=== PATIENT | female | born 1955 | race Caucasian/White ===

== ENCOUNTER 2021-10-11 15:26 | Inpatient (IN) | payer OTHER, MEDICARE ==
[~2021-10-11] VITALS: Ht 162.6 cm; Wt 78.9 kg
[2021-10-11] MEDS ORDERED: IV NS 0.9% 1,000 ML BAG IV ONE (16:00)
[2021-10-11 16:02] LABS: BASOPHILS % (AUTO) 0.3 % (0.0-2.0); EOSINOPHILS % (AUTO) 1.3 % (0.0-6.0); HEMATOCRIT 38 % (33-45); LYMPHOCYTES # (AUTO) 1.6 K/uL (0.8-4.8); LYMPHOCYTES % (AUTO) 21.1 % (20.0-44.0); MEAN CORPUSCULAR HGB CONC 34 g/dl (31.0-36.0); MEAN CORPUSCULAR VOLUME 81 fL (82-100); MONOCYTES # (AUTO) 0.3 K/uL (0.1-1.30); MONOCYTES % (AUTO) 4.2 % (2.0-12.0); NEUTROPHILS # (AUTO) 5.4 K/uL (1.8-8.9); NEUTROPHILS % (AUTO) 73.1 % (43.0-81.0); PLATELET COUNT (AUTO) 241 K/uL (150-450); RED BLOOD CELL COUNT(AUTO) 4.71 MIL/uL (4.0-5.2); WHITE BLOOD COUNT (AUTO) 7.4 K/uL (4.3-11.0)
[2021-10-11 16:13] LABS: ALANINE AMINOTRANSFERASE 24 U/L (12-78); ALBUMIN 3.7 g/dL (3.4-5.0); ALKALINE PHOSPHATASE 81 U/L (46-116); ASPARTATE AMINOTRANSFERASE 16 U/L (15-37); BILIRUBIN,DIRECT 0.1 mg/dL (0.0-0.2); BILIRUBIN,TOTAL 0.4 mg/dL (0.2-1.0); CALCIUM, SERUM 9.9 mg/dL (8.5-10.1); CARBON DIOXIDE 25 mmol/L (21-32); CHLORIDE 96 mmol/L (98-107); CREATININE 0.9 mg/dL (0.6-1.3); POTASSIUM 4.1 mmol/L (3.5-5.1); SODIUM SERUM 130 mmol/L (136-145); TOTAL PROTEIN, SERUM 8.2 g/dL (6.4-8.2); UREA NITROGEN, BLOOD 19 mg/dL (7-18)
[2021-10-11 16:23] LABS: GLUCOSE 478 mg/dL (74-106)
--- NOTE | 2021-10-11 16:24 | NUR ---
RECEIVED A CRITICAL RESULT FROM LAB ([facility]) PT'S GLUCOSE 478mg/dl, TROP of 92. DR HARRIS MADE AWARE
[2021-10-11] MEDS ORDERED: INSULIN REGULAR, HUMAN 100 UNIT/ML 10 ML VIAL SQ ONE (16:30)
[2021-10-11] MEDS ORDERED: INSU100V7 SQ (16:40)
[2021-10-11] MEDS ORDERED: ASPI-1420 PO (16:40)
[2021-10-11] MEDS ORDERED: MELA5TAB21 PO (16:40)
[2021-10-11] MEDS ORDERED: METF-881 PO (16:40)
[2021-10-11] MEDS ORDERED: LOSA25TA27 PO (16:40)
[2021-10-11] MEDS ORDERED: INSU100V11 SQ (16:40)
[2021-10-11] MEDS ORDERED: LEVO50TA8 PO (16:40)
[2021-10-11] MEDS ORDERED: ACET1TAB23 PO (16:40)
[2021-10-11] MEDS ORDERED: LANS30CA56 PO (16:40)
--- NOTE | 2021-10-11 17:00 | NUR ---
URINE COLLECTED AND SENT TO THE LAB
--- NOTE | 2021-10-11 17:00 | NUR ---
COVID ANTIGEN SWAB DONE AND SENT TO THE LAB
--- NOTE | 2021-10-11 17:24 | NUR ---
CALLED VALENTIN JAIMESP AND OPENED UP A CASE FOR THE PT AWAITING CALL BACK FOR VALNETIN PRESLEY
[2021-10-11] MEDS ORDERED: ONDANSETRON HCL/PF 4 MG/2 ML VIAL ONE (19:37)
--- NOTE | 2021-10-11 19:45 | NUR ---
FABIENNE FABRIC PATTERN GRADER AT PT'S BEDSIDE
[2021-10-11] MEDS ORDERED: Z GUARD REMEDY 4 OZ OINT TP PRN (20:30)
[2021-10-11] MEDS ORDERED: MAG HYDROX/AL HYDROX/SIMETH 30 ML UDC PO PRN (20:30)
[2021-10-11] MEDS ORDERED: DEXTROSE 50%-WATER 50 ML DISP.SYRIN IV PRN (20:30)
[2021-10-11] MEDS ORDERED: ACETAMINOPHEN 325 MG TABLET PO PRN (20:30)
[2021-10-11] MEDS ORDERED: MORPHINE SULFATE INJ 2 MG/ML DISP.SYRIN IV PRN (20:30)
[2021-10-11] MEDS ORDERED: IV NS 0.9% 1,000 ML IV PRN (20:30)
--- NOTE | 2021-10-11 20:31 | NUR ---
REPORT GIVEN TO SELMA SILVA
--- NOTE | 2021-10-11 21:12 | NUR ---
PT TRANSFERRED TO [facility] VIA ACLS PROTOCOL . ALL BELONGINGS WITH PT. VSS
--- NOTE | 2021-10-11 21:30 | NUR ---
RN OPENING NOTE PT RECEIVED FROM ER, ADMITTED TO TELE AT 2109. ADMITTED FROM HOME WITH DIAGNOSIS OF NSTEMI AND SYNCOPE. PT IS A/O X 4. ABLE TO MAKE NEEDS KNOWN. ON RA TOLERATING WELL. NO S/SX OF ACUTE DISTRESS NOTED AT THIS TIME. NO SOB. PT SAID HER ANKLES HURT FROM HER FALL WHEN SHE HAD SYNCOPAL EPISODE PRIOR TO ADMISSION. PT HAS SOME HEALED ABRASIONS ON HER BACK AND ARMS. SHE REFUSED TO HAVE THE PHOTOS TAKEN. HAS BRUISING ON HER FOREHEAD FROM THE FALL. RIGHT BIG TOE IS MISSING AND DOES NOT WANT TO SHOW IT. VVS WNL UPON ASSESSMENT. ALL SAFETY MEASURES IN PLACE. BED LOCKED IN LOWEST POSITION. BED ALARM ON. CALL LIGHT WITHIN REACH. WILL CONTINUE TO MONITOR.
[2021-10-11] MEDS: ENOXAPARIN SODIUM 40 MG/0.4 ML DISP.SYRIN SQ SCH (21:51)
[2021-10-11] MEDS: BLOOD SUGAR DIAGNOSTIC 1 EACH STRIP VI SCH (21:59)
[2021-10-11] MEDS ORDERED: TEMAZEPAM 15 MG CAPSULE PO PRN (22:00)
[2021-10-11] MEDS ORDERED: MAGNESIUM HYDROXIDE 30 ML UDC PO PRN (22:00)
[2021-10-11] MEDS: ONDANSETRON HCL/PF 4 MG/2 ML VIAL IVP PRN (22:08)
[2021-10-11] MEDS: *INSULIN REGULAR(HUMULIN R)HUM 100 UNIT/ML VIAL SQ PRN (22:22)
[2021-10-11] MEDS: HYDROCODONE/APAP 5/325MG TABLET PO PRN (23:41)
[2021-10-11] MEDS: LORAZEPAM 0.5 MG TABLET PO PRN (23:50)
[2021-10-12] VITALS: BP 126/69
[2021-10-12 04:00] VITALS: BP 146/68
--- NOTE | 2021-10-12 07:12 | NUR ---
RN CLOSING NOTE PT REMAINED STABLE THROUGHOUT THE NIGHT. PT IS A/O X 4. ABLE TO MAKE NEEDS KNOWN. ON RA TOLERATING WELL. NO S/SX OF ACUTE DISTRESS SATING AT 97%. NO SOB. PT SAID HER ANKLES HURT FROM HER FALL WHEN SHE HAD SYNCOPAL EPISODE PRIOR TO ADMISSION. GAVE NORCO AND ATIVAN REQUESTED BY PT. ALL DUE MEDS GIVEN. ALL NEEDS ATTENDED TO. ALL SAFETY MEASURES IMPLEMENTED. BED LOCKED IN LOWEST POSITION. BED ALARM ON. CALL LIGHT WITHIN REACH. WILL ENDORSE TO AM SHIFT NURSE FOR MARIE.
[2021-10-12 07:18] LABS: BASOPHILS % (AUTO) 0.6 % (0.0-2.0); EOSINOPHILS % (AUTO) 2.4 % (0.0-6.0); HEMATOCRIT 35 % (33-45); HEMOGLOBIN 11.9 g/dL (11.5-14.8); LYMPHOCYTES % (AUTO) 30.2 % (20.0-44.0); MEAN CORPUSCULAR HGB CONC 34 g/dl (31.0-36.0); MEAN CORPUSCULAR VOLUME 80 fL (82-100); MONOCYTES # (AUTO) 0.4 K/uL (0.1-1.30); MONOCYTES % (AUTO) 6.8 % (2.0-12.0); NEUTROPHILS # (AUTO) 3.9 K/uL (1.8-8.9); PLATELET COUNT (AUTO) 231 K/uL (150-450); RED BLOOD CELL COUNT(AUTO) 4.35 MIL/uL (4.0-5.2); WHITE BLOOD COUNT (AUTO) 6.5 K/uL (4.3-11.0)
[2021-10-12 07:19] LABS: MAGNESIUM 1.8 mg/dL (1.8-2.4); PHOSPHORUS 3.9 mg/dL (2.5-4.9); POTASSIUM 3.9 mmol/L (3.5-5.1)
[2021-10-12] MEDS ORDERED: ROSU20TA32 PO (07:26)
[2021-10-12] MEDS: BLOOD SUGAR DIAGNOSTIC 1 EACH STRIP VI SCH ×4 (07:51→21:52)
[2021-10-12] MEDS: INSULIN REGULAR, HUMAN 100 UNIT/ML 3 ML VIAL SQ PRN ×3 (07:56→16:46)
[2021-10-12 08:00] VITALS: BP 141/76
[2021-10-12] MEDS: INSULIN GLARGINE, 100 UNIT/ML CARTRIDGE SQ SCH ×2 (08:11→16:47)
[2021-10-12] MEDS: ASPIRIN EC 81 MG TABLET.DR PO SCH (08:13)
[2021-10-12] MEDS: LEVOTHYROXINE SODIUM 50 MCG TABLET PO SCH (08:13)
[2021-10-12] MEDS: LOSARTAN POTASSIUM 50 MG TABLET PO SCH (08:13)
[2021-10-12] MEDS: METFORMIN XR 500 MG TAB.SR.24H PO SCH (08:13)
[2021-10-12] MEDS: PANTOPRAZOLE 40 MG VIAL IV SCH (08:14)
[2021-10-12] MEDS: HYDROCODONE/APAP 5/325MG TABLET PO PRN ×2 (09:57→21:06)
--- NOTE | 2021-10-12 11:55 | NUR ---
RN NOTES PATIENT SEEN BY PT AT BEDSIDE FOR EVAL/TX; MADE AWARE THAT PATIENT IS UNABLE TO STAND ON RLE. NWB FOR NOW AND WILL MAKE HOSPITALIST BE AWARE.
[2021-10-12 12:00] VITALS: BP 120/72
--- NOTE | 2021-10-12 12:38 | NUR ---
RN NOTES PATIENT SEEN BY DR. WRIGHT W/ ORDERS NOTED.
[2021-10-12] MEDS: PREGABALIN 25 MG CAPSULE PO SCH ×2 (12:54→16:43)
[2021-10-12 16:00] VITALS: BP 151/71
--- NOTE | 2021-10-12 16:14 | NUR ---
RN NOTES PATIENT SEEN BY DR. JULES FOR NEURO CONSULT AT BEDSIDE. BP TAKEN WHEN PATIENT IS STANDING. ASSISTED PATIENT TO BSC.
--- NOTE | 2021-10-12 18:25 | NUR ---
RN NOTES DR. WRIGHT MADE AWARE OF XRAY RESULT AND NEURO CONSULT.
--- NOTE | 2021-10-12 19:29 | NUR ---
RN NOTES PATIENT W/ STANDING ORDER FOR CT ANG[facility] HEART W/ 3D IMAGE. SPOKE W/ PATIENT AND INFORMED ABOUT RECOMMENDED PROCEDURE BY DR. ARIZA. PER PATIENT, SHE IS NOT SURE ABOUT PROCEDURE YET AND WILL HAVE TO ASK DAUGHTER FOR ADVICE. ENDORSED TO PROTECTION ENGINEER RN; FORM PLACED IN THE CHART FOR NOW.
--- NOTE | 2021-10-12 19:30 | NUR ---
RN OPENING NOTE RECEIVED PT IN BED, A/O X 4, ABLE TO MAKE NEEDS KNOWN. VERBALLY RESPONSIVE IN DANISH. ON ROOM AIR SATING AT 98%. RESPIRATORY EVEN AND UNLABORED, NO SOB NOTED AT THIS TIME. REMAINS AFEBRILE. NOTED WITH IV ACCESS AT LAC, #18g. NO INFILTRATION NOTED AT SITE. [facility] ALL SAFETY MEASURES IN PLACE. BED IN LOWEST POSITION, LOCKED. BED ALARM ON. CALL LIGHT WITHIN REACH. WILL CONTINUE TO MONITOR.
[2021-10-12 20:00] VITALS: BP 130/61
[2021-10-12] MEDS: LORAZEPAM 0.5 MG TABLET PO PRN (21:06)
[2021-10-12] MEDS: ENOXAPARIN SODIUM 40 MG/0.4 ML DISP.SYRIN SQ SCH (21:08)
[2021-10-12] MEDS: *INSULIN REGULAR(HUMULIN R)HUM 100 UNIT/ML VIAL SQ PRN (21:55)
[2021-10-13] VITALS (8 sets, daily range): BP systolic 111–198; BP diastolic 59–86
--- NOTE | 2021-10-13 06:55 | NUR ---
RN CLOSING NOTE PT REMAINED STABLE THROUGHOUT THE NIGHT. PT IS A/O X 4. ABLE TO MAKE NEEDS KNOWN. ON RA TOLERATING WELL. NO S/SX OF ACUTE DISTRESS AND SATING AT 97%. NO SOB. ON TELE MONITOR SHOWING SR WITH HR IN THE 90s. LAC NOTED WITH #18g. PATENT AND INTACT. FLUSHES WELL. PT COMPLAINS OF PAIN ON HER ANKLES AND REQUESTED FOR NORCO AND ATIVAN FOR A SOUND SLEEP BEFORE BEDTIME. PT CALMED DOWN AND RELAXED. ALL DUE MEDS GIVEN. ALL NEEDS ATTENDED TO. KEPT PT CLEAN AND COMFORTABLE. KEPT HOB ELEVATED. SAFETY MEASURES IMPLEMENTED. BED LOCKED IN LOWEST POSITION. BED ALARM ON. CALL LIGHT WITHIN REACH. WILL ENDORSE TO AM SHIFT NURSE FOR MARIE.
[2021-10-13 06:57] LABS: BASOPHILS % (AUTO) 0.5 % (0.0-2.0); EOSINOPHILS % (AUTO) 3.7 % (0.0-6.0); HEMATOCRIT 35 % (33-45); LYMPHOCYTES # (AUTO) 2.1 K/uL (0.8-4.8); LYMPHOCYTES % (AUTO) 36.6 % (20.0-44.0); MEAN CORPUSCULAR HGB CONC 34 g/dl (31.0-36.0); MEAN CORPUSCULAR VOLUME 81 fL (82-100); MONOCYTES # (AUTO) 0.3 K/uL (0.1-1.30); MONOCYTES % (AUTO) 5.9 % (2.0-12.0); NEUTROPHILS % (AUTO) 53.3 % (43.0-81.0); PLATELET COUNT (AUTO) 208 K/uL (150-450); WHITE BLOOD COUNT (AUTO) 5.7 K/uL (4.3-11.0)
[2021-10-13 07:07] LABS: CALCIUM, SERUM 9.5 mg/dL (8.5-10.1); MAGNESIUM 1.7 mg/dL (1.8-2.4); PHOSPHORUS 4.7 mg/dL (2.5-4.9)
[2021-10-13] MEDS: BLOOD SUGAR DIAGNOSTIC 1 EACH STRIP VI SCH (08:23)
--- NOTE | 2021-10-13 08:30 | NUR ---
FARM AGENT NOTE PATIENT WALKED TO THE BATHROOM AND JUST SAT DOWN AND 1 MINUTE AFTER SHE CALLED MY ATTENTION AND SAID SHE IS DIZZY. I APPROACHED HER AND SHE SUDDENLY CLOSED HER EYES AND LOSS CONSCIOUSNESS FOR ABOUT 2-3 SECONDS (AROUND 0810) AND STARTED STANDING UP AND IN A PANICKY MANNER WAS ASKING WHAT HAPPENED. I TOLD HER WHAT HAPPENED AND SHE SAID THAT SHE BLACKED OUT AND JUST REMEMBER BEING DIZZYL PATIENT HELPED BACK TO BED AND VS CHECKED WITH BP AT 198/82. ENCOURAGED TO DO DEEP BREATHING EXERCISES. CHECKED WITH LAWN TECHNICIAN AND SAID NOTHING SIGNIFICANT NOTED. DR. WRIGHT NOTIFIED.
[2021-10-13] MEDS: LOSARTAN POTASSIUM 50 MG TABLET PO SCH (08:40)
[2021-10-13] MEDS: PREGABALIN 25 MG CAPSULE PO SCH ×2 (08:41→17:33)
[2021-10-13] MEDS: ASPIRIN EC 81 MG TABLET.DR PO SCH (08:41)
[2021-10-13] MEDS: LEVOTHYROXINE SODIUM 50 MCG TABLET PO SCH (08:41)
[2021-10-13] MEDS: PANTOPRAZOLE 40 MG VIAL IV SCH (08:42)
[2021-10-13] MEDS: INSULIN GLARGINE, 100 UNIT/ML CARTRIDGE SQ SCH ×2 (08:59→17:33)
[2021-10-13] MEDS: METFORMIN XR 500 MG TAB.SR.24H PO SCH (09:00)
--- NOTE | 2021-10-13 09:15 | NUR ---
Per SELMA Mcrae, Patient is refusing CTA Heart scan at the moment.
--- NOTE | 2021-10-13 09:30 | NUR ---
DANCE CHOREOGRAPHER NOTE PATIENT REFUSED METFORMIN, DOES NO THAVE APPETITE RIGHT NOW. SHE SAID SHE WILL TAKE THE LANTUS AND OTHER MEDS BUT NOT METFORMIN YET. HEALTH TEACHING DONE AND VERBALIZED UNDERSTANDING.
--- NOTE | 2021-10-13 09:40 | NUR ---
POULTRY PROCESS WORKER NOTE ORTHROSTATIC VS CHECKED LYING DOWN AND SITTING. RESULTS RELAYED TO DR. WRIGHT WITH ORDER TO GIVE 1 LITER PNSS BOLUS. IV BOLUS STARTED AND INFUSING WELL. PATIENT ASYMPTOMATIC. STILL REFUSING CTA OF THIS TIME. IN STABLE CONDITION.
[2021-10-13] MEDS ORDERED: *INSULIN REGULAR(HUMULIN R)HUM 100 UNIT/ML VIAL SQ PRN (10:00)
[2021-10-13] MEDS ORDERED: DEXTROSE 50%-WATER 50 ML DISP.SYRIN IV PRN (10:00)
[2021-10-13] MEDS ORDERED: IV NS 0.9% 1,000 ML IV ONE (10:00)
[2021-10-13] MEDS: Magnesium 1GM/D5W 100ML PREMIX 100 ML IV SCH ×2 (10:37→11:49)
--- NOTE | 2021-10-13 11:30 | NUR ---
BUNCHER HAND NOTE PATIENT SEEN BY DR. RAIZA.
--- NOTE | 2021-10-13 12:45 | NUR ---
DRYWALL TAPER NOTE MD DR. ARIZA UPDATED OF LATEST ORTHOSTATICS. RELAYED TO . COMFORT MEASURES PROVIDED.
[2021-10-13] MEDS: BLOOD SUGAR DIAGNOSTIC 1 EACH STRIP IN SCH ×3 (12:52→21:21)
[2021-10-13] MEDS: INSULIN REGULAR, HUMAN 100 UNIT/ML 3 ML VIAL SQ PRN ×2 (12:54→17:31)
--- NOTE | 2021-10-13 15:00 | NUR ---
PRIMARY CLINICIAN NOTE SPOKE WITH PRANEETH OF ECHO DEPARTMENT . SHE SAID DR ARIZA WILL PLACE THE ORDER FOR PROCEDURE TOMORROW. AWAITING ORDER.
--- NOTE | 2021-10-13 17:19 | NUR ---
CUSTOMER EXPERIENCE LEADER NOTE SPOKE WITH DR. JULES. UPDATED ON PATIENT'S CONDITION.
--- NOTE | 2021-10-13 19:10 | NUR ---
RN NOTES RECEIVED REPORT FROM MORNING SHIFT PATIENT IN BED A/O X4 ABLE TO MAKE NEEDS KNOWN. WITH IV ACCESS AT L AC # 18 PATENT FLUSHES WELL. VITAL SIGNS TAKEN AND RECORDED AFEBRILE. NO SOB NO DISTRESS NOTED AT THIS TIME. ALL SAFETY MEASURES IN PLACE. HOB ELEVATED. CALL LIGHT WITHIN REACH BED ON LOWEST POSITION AND LOCKED. WILL CLOSELY MONITOR THE PATIENT.
[2021-10-13] MEDS ORDERED: BISACODYL SUPP (10 MG) 10 MG/SUPP.RECT SUPP.RECT RC PRN (21:00)
[2021-10-13] MEDS: ENOXAPARIN SODIUM 40 MG/0.4 ML DISP.SYRIN SQ SCH (21:05)
--- NOTE | 2021-10-13 21:21 | NUR ---
RN NOTES PATIENT BS 235 MG/DL 4 UNITS OF REGULAR INSULIN GIVEN
[2021-10-13] MEDS: LORAZEPAM 0.5 MG TABLET PO PRN (21:32)
[2021-10-13] MEDS: ONDANSETRON HCL/PF 4 MG/2 ML VIAL IVP PRN (21:59)
[2021-10-14] VITALS (16 sets, daily range): BP systolic 100–193; BP diastolic 44–90
[2021-10-14 06:52] LABS: BASOPHILS % (AUTO) 0.4 % (0.0-2.0); EOSINOPHILS % (AUTO) 2.8 % (0.0-6.0); HEMATOCRIT 34 % (33-45); HEMOGLOBIN 11.5 g/dL (11.5-14.8); LYMPHOCYTES # (AUTO) 2.2 K/uL (0.8-4.8); LYMPHOCYTES % (AUTO) 33.3 % (20.0-44.0); MEAN CORPUSCULAR HGB CONC 34 g/dl (31.0-36.0); MEAN CORPUSCULAR VOLUME 81 fL (82-100); MONOCYTES # (AUTO) 0.4 K/uL (0.1-1.30); MONOCYTES % (AUTO) 5.9 % (2.0-12.0); NEUTROPHILS # (AUTO) 3.9 K/uL (1.8-8.9); NEUTROPHILS % (AUTO) 57.6 % (43.0-81.0); PLATELET COUNT (AUTO) 230 K/uL (150-450); RED BLOOD CELL COUNT(AUTO) 4.18 MIL/uL (4.0-5.2); WHITE BLOOD COUNT (AUTO) 6.7 K/uL (4.3-11.0)
--- NOTE | 2021-10-14 06:55 | NUR ---
RN NOTES PATIENT REMAINS STABLE NO SIGNIFICANT CHANGES IN HEALTH CONDITION. ALL DUE MEDS GIVEN. PATIENT ON NPO FOR POSSIBLE SENTHIL THIS MORNING. ALL SAFETY MEASURES IN PLACE AT ALL TIMES. HOB ELEVATED. CALL LIGHT WITHIN REACH. WILL ENDORSED TO MORNING SHIFT FOR MARIE
[2021-10-14 07:02] LABS: CALCIUM, SERUM 8.9 mg/dL (8.5-10.1); CREATININE 0.9 mg/dL (0.6-1.3); MAGNESIUM 2.2 mg/dL (1.8-2.4); POTASSIUM 3.9 mmol/L (3.5-5.1)
--- NOTE | 2021-10-14 07:25 | NUR ---
RN OPENING NOTES RECEIVED PATIENT IN BED A/O X4, ABLE TO MAKE NEEDS KNOWN. L AC G#18 INTACT AND PATENT, SL. ON RA WITH NO S/SX OF DISTRESS NOTED AT THIS TIME. RECEIVED BED FOR ICU TRANSFER. PATIENT WILL UNDERGO SENTHIL PROCEDURE TODAY PER DR ARIZA. REMAINS NPO SINCE MIDNIGHT LAST NIGHT EXCEPT MEDS. ALL SAFETY MEASURES IN PLACE. HOB ELEVATED. CALL LIGHT WITHIN REACH BED ON LOWEST POSITION AND LOCKED. WILL MONITOR PATIENT AND ENDORSE ACCORDINGLY.
[2021-10-14] MEDS ORDERED: PANTOPRAZOLE 40 MG TABLET.DR PO SCH (07:30)
--- NOTE | 2021-10-14 07:35 | NUR ---
RN NOTES PATIENT TRANSFERRED TO ICU.
--- NOTE | 2021-10-14 07:40 | NUR ---
RN NOTES REPORT GIVEN TO ICU NURSE SELMA VILLEDA.
--- NOTE | 2021-10-14 08:00 | NUR ---
RN NOTES PATIENT TRANSFERRED TO THE [facility] AT THIS TIME FOR SCHEDULED TRANSESOPHAGEAL ECHOCARDIOGRAM PROCEDURE AT BEDSIDE. PATIENT NPO, A/O X4, REFUSED PAIN, ON ROOM AIR. BS-167 MG/DL, IV ACCESS ON LEFT AC AREA INTACT, STARTED NS @1900 ML/HR. . SEEN NEUROLOGIST Dr JULES . Addendum: 10/14/21 at 0852 by MAX ANGELES RN ABOVE NOTES PATIENT TRANSFERRED FROM [facility] TO THE ICU UNIT ROOM 256.
[2021-10-14] MEDS: BLOOD SUGAR DIAGNOSTIC 1 EACH STRIP IN SCH ×3 (08:03→18:09)
[2021-10-14] MEDS ORDERED: FENTANYL PF 100MCG/2ML AMPUL IV STA (08:17)
[2021-10-14] MEDS ORDERED: MIDAZOLAM HCL 2 MG/2ML VIAL IV STA (08:17)
[2021-10-14] MEDS ORDERED: FENTANYL PF 100MCG/2ML AMPUL ONE (08:19)
[2021-10-14] MEDS ORDERED: MIDAZOLAM HCL 2 MG/2ML VIAL ONE (08:19)
--- NOTE | 2021-10-14 08:30 | NUR ---
RN NOTES PER Dr ARIZA'S ORDERED IV PUSH MEDS FOR Moderate sedation VERSED 2MG/ML, AND FENTANYL 50MG/ML Transesophageal echocardiogram including 2-D imaging, color Doppler and Doppler, BP monitoring Q3 mins. Patient signed consent, explained risks, benefits and alternatives to procedure via Dr Ariza. SENTHIL probe was advanced through the oropharynx area .The patient tolerated the procedure well. Patient awake at this time. suction mouth for extra oral secretion, bp -128/53, p-81. will transfer to the TELE floor later after stabilized condition. order taken and carried out.
[2021-10-14] MEDS ORDERED: NALOXONE HCL 0.4 MG/ML AMPUL IV STA (08:35)
[2021-10-14] MEDS: PREGABALIN 25 MG CAPSULE PO SCH ×2 (10:25→17:42)
[2021-10-14] MEDS: LEVOTHYROXINE SODIUM 50 MCG TABLET PO SCH (10:25)
[2021-10-14] MEDS: ASPIRIN EC 81 MG TABLET.DR PO SCH (10:25)
[2021-10-14] MEDS: LOSARTAN POTASSIUM 50 MG TABLET PO SCH (10:25)
--- NOTE | 2021-10-14 10:45 | NUR ---
rn notes Patient stable transferred back to the TELE UNIT room 109 BED 1 with ACLS protocol, due medication administered, vss, BS-167 MG/DL. endorsed RN Ragini follow plan of care.
--- NOTE | 2021-10-14 10:45 | NUR ---
RN NOTES RECEIVED PATIENT FROM ICU IN STABLE CONDITION. POST SENTHIL PROCEDURE. VSS. WILL CONTINUE TO MONITOR
[2021-10-14] MEDS: METFORMIN XR 500 MG TAB.SR.24H PO SCH (12:10)
[2021-10-14] MEDS: INSULIN REGULAR, HUMAN 100 UNIT/ML 3 ML VIAL SQ PRN ×2 (12:13→18:08)
[2021-10-14] MEDS: INSULIN GLARGINE, 100 UNIT/ML CARTRIDGE SQ SCH ×2 (12:14→18:07)
[2021-10-14] MEDS ORDERED: METHYL SALICYLATE/MENTHOL 28GM 28 GM TUBE TP PRN (14:30)
--- NOTE | 2021-10-14 17:00 | NUR ---
RN NOTES IV ACCESS DISLODGED. PATIENT IS REFUSING TO HAVE NEW IV LINE. DR WRIGHT NOTIFIED AND SAID OKAY FOR PATIENT TO BE WITHOUT ACCESS FOR NOW.
--- NOTE | 2021-10-14 17:15 | NUR ---
RN NOTES REFERRED PATIENT TO CASE MANAGING FOR ASSISTANCE WITH DC PLANNING. PATIENT PROVIDED WITH A WALKER TO GO HOME WITH AFTER DISCHARGE.
[2021-10-14] MEDS ORDERED: MIDODRINE HCL (5MG) 5 MG TABLET PO SCH (17:30)
--- NOTE | 2021-10-14 18:50 | NUR ---
RN NOTES SPOKE ON THE PHONE WITH PATIENTS DAUGHTER (ADAN) PHONE NUMBER [phone]. DAUGHTER IS REQUESTING FOR MEDICAL STAFF TO BE AT BEDSIDE WITH PATIENT TONIGHT AFTER D/C. HOME HEALTH IS BEING SET UP THROUGH [facility] PER CASE MANAGING.
[2021-10-14] MEDS ORDERED: MIDO5TAB4 PO (19:07)
[2021-10-14] MEDS ORDERED: METF500T3 PO (19:07)
--- NOTE | 2021-10-14 19:10 | NUR ---
RN NOTES RECEIVED REPORT FROM MORNING RN PATIENT IN BED A/O X4 ABLE TO MAKES NEEDS KNOWN.S/P SENTHIL. PATIENT IS FOR D/C TO HOME. DISCHARGE PAPERS COMPLETED. HEALTH TEACHING AND SAFETY MEASURES INSTRUCTED TO PATIENT AND FAMILY. SPOKE TO ADAN HER DAUGHTER ABOUT THE MEDICATION. WILL CONTINUE TO MONITOR THE PATIENT
[2021-10-14] MEDS: ENOXAPARIN SODIUM 40 MG/0.4 ML DISP.SYRIN SQ SCH (21:00)
--- NOTE | 2021-10-14 22:45 | NUR ---
RN NOTES PATIENT DISCHARGE TO HOME VIA PRIVATE CAR DAUGHTER WILL DRIVE HER HOME. WHEEL PATIENT TO THE FRONT. ALL BELONGINGS AND WALKER GIVEN. PATIENT REMAINS STABLE. VITAL SIGNS TAKEN AND RECORDED BP 130/65 TN 88 TEMP 98 O2 SAT 99%. HEALTH TEACHING INSTRUCTED TO PATIENT AND FAMILY MEMBER.
[2021-10-15] MEDS ORDERED: METFORMIN XR 500 MG TAB.SR.24H PO SCH (09:00)
== END 2021-10-14 23:18 | disposition home health service (06) | DRG 73 ==
LOC: ER 15:33 → TELE1 19:58 → ICU 10-14 07:39 → TELE1 10-14 10:36
PROVIDERS: ADMIT Nurse Practitioner Acute Care; ATTEND Nurse Practitioner Acute Care
PROC: B246ZZ4 Ultrasonography of Right and Left Heart, Transesophageal (ICD-10-PCS; principal; 2021-10-14)
DX: E11.43 Type 2 diabetes mellitus with diabetic autonomic (poly)neuropathy (principal); I21.A1 Myocardial infarction type 2; E87.1 Hypo-osmolality and hyponatremia; J98.11 Atelectasis; I95.1 Orthostatic hypotension; I16.0 Hypertensive urgency; I10 Essential (primary) hypertension; Z20.822 Contact with and (suspected) exposure to COVID-19; E11.51 Type 2 diabetes mellitus with diabetic peripheral angiopathy without gangrene; E78.5 Hyperlipidemia, unspecified; E86.1 Hypovolemia; Z88.2 Allergy status to sulfonamides; Z79.4 Long term (current) use of insulin; Z79.84 Long term (current) use of oral hypoglycemic drugs; Z79.82 Long term (current) use of aspirin; Z79.899 Other long term (current) drug therapy; I49.9 Cardiac arrhythmia, unspecified; E03.9 Hypothyroidism, unspecified; E11.65 Type 2 diabetes mellitus with hyperglycemia; R79.89 Other specified abnormal findings of blood chemistry; Z89.422 Acquired absence of other left toe(s); Z89.421 Acquired absence of other right toe(s); S00.03XA Contusion of scalp, initial encounter; W18.30XA Fall on same level, unspecified, initial encounter; Y92.481 Parking lot as the place of occurrence of the external cause; M47.812 Spondylosis without myelopathy or radiculopathy, cervical region; Z68.29 Body mass index [BMI] 29.0-29.9, adult; E66.9 Obesity, unspecified; I35.0 Nonrheumatic aortic (valve) stenosis; Z91.19 Patient's noncompliance with other medical treatment and regimen; I25.10 Atherosclerotic heart disease of native coronary artery without angina pectoris; F41.9 Anxiety disorder, unspecified; I70.0 Atherosclerosis of aorta
CPT/HCPCS: 36415; 70450-TC; 71045-TC; 72125-TC; 73610-TC; 80048-TC; 80076-TC; 82962-TC; 83735-TC; 84100-TC; 84484-TC; 85025-TC; 87081-TC; 93307-TC; 93308-TC; 93312-TC; 97112-TC; 97530-TC; C9113; C9803; G0378; J1650; J1815; J2250; J2310; J2405; J3010; J3475; J7030; J7040; J7060